=== PATIENT | male | born 1955 | race Caucasian/White ===

== ENCOUNTER 2019-03-14 12:54 | Emergency (ER) | payer OTHER ==
--- OUTSIDE RECORDS SUMMARY | 2019-03-14 13:30 | XMS REPORT | Continuity of Care Document ---
:1955 External Reference #:[id number] Author Name Queta Thompson MD (transmitted by agent of provider Rebecca Fernandez) Address [address] [facility], [place] [address] Care Team Providers Name Role Phone Queta Thompson M.D. 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 Provider Date Essential hypertension Essie Marker, RPA-C Onset: 11/29/2017 Note: Stable on losartan Hyperlipidemia Essie Marker, RPA-C Onset: 11/29/2017 Migraine Essie Marker, RPA-C Onset: 11/29/2017 Social History Type Date Description Comments Sex Unknown ETOH Use Currently consumes 2 drinks/wk alcohol Tobacco Use Start: Unknown Patient has never smoked Recreational Drug Use Current Drug User Marijuana 2x/wk Smoking Status Reviewed: 01/15/19 Patient has never smoked Exercise Type/Frequency Exercises regularly walking, biking Allergies, Adverse Reactions, Alerts Description No Known Drug Allergies Medications Active Medications SIG Qnty Indications Ordering Date Provider Chlorthalidone 1 by mouth once a 30tabs I10 Queta Thompson MD 01/15/2019 25mg day Tablets Tadalafil one by mouth one 14tabs Queta Thompson MD 09/21/2018 20mg Tablets hour before intercourse Sildenafil Citrate take 1-2 tablets 30tabs Queta Thompson MD 04/06/2018 50mg 0.5-4 hours before Tablets activity as needed. Losartan Potassium take one tablet by 90tadavid Thompson MD 100mg mouth daily Tablets Simvastatin take one tablet by 90tadavid Thompson MD 20mg Tablets mouth at night. Multi Vitamin 1 by mouth every Unknown Tablets day Co Q10 1 by mouth every Unknown 200mg Capsules day Immunizations CPT Code Status Date Vaccine Reaction Lot # [id number] Given 01/15/2019 Influ Virus Vaccine, pt. tolerated well. dg [id number] Quadrivalent, Split Virus, [place] [address] Given 07/02/2018 Tdap - No immediate reaction [id number] Tetanus/Diptheria/Acellular Pertussis [id number] Given 11/29/2017 Influenza Virus Vaccine, [id number] Quadrivalent, Split, Preservative Free [id number] Ordered 08/01/2016 Zoster (Zostavax) Vital Signs Date Vital Result Comment 01/15/2019 10:47am Height 68 inches 5'8" Weight 149.00 lb Heart Rate 65 /min BP Systolic Sitting 160 mmHg BP Diastolic Sitting 96 mmHg Body Temperature 97.3 F O2 % BldC Oximetry 99 % BMI (Body Mass Index) 22.7 kg/m2 11/12/2018 3:52pm Height 68 inches 5'8" Weight 152.50 lb Heart Rate 61 /min BP Systolic Sitting 162 mmHg Rue reg cuff manual BP Diastolic Sitting 98 mmHg Rue reg cuff manual O2 % BldC Oximetry 96 % BMI (Body Mass Index) 23.2 kg/m2 Results Description No Information Available Procedures Date Code Description Status 08/19/2015 83350989 Colonoscopy Completed Medical Devices Description No Information Available Encounters Type Date Location Provider Dx Diagnosis Office Visit 01/15/2019 [facility] Queta Thompson MD I10 Essential ( primary[facility] for [facility] Office Visit 11/12/2018 3:20p [facility] Queta Thompson MD Z00.00 [facility]/o abnormal findings I10 Essential (primary) hypertension Assessments Date Code Description Provider 01/15/2019 I10 Essential (primary) hypertension Queta Thompson MD 01/15/2019 Z23 Encounter for immunization Queta Thompson MD 11/12/2018 Z00.00 Encounter for general adult medical examination Queta Thompson MD without abnormal findings 11/12/2018 I10 Essential (primary) hypertension Queta Thompson MD Plan of Treatment Future Appointment(s):04/17/2019 10:20 am - Queta Thompson MD at [facility] Medicine - [facility]01/29/2019 10:30 am - [facility] Queta Thompson MDI10 Essential (primary) hypertensionNew Medication:Chlorthalidone 25 mg - 1 by mouth once a dayComments:Start chlorthalidone daily, in the morning, as well as regular aerobic exercise.Return for nurse visit in 2 weeks, then MD follow up in 3 Sonja encourage you to check your blood pressure on occasion. If it seems to be greater than 140/90 on a regular basis, please touch base with the office.Follow up:2 wk nurse visit 3 mo HTN follow upZ23 Encounter for immunizationImmunizations/Injections:Influenza Virus Vaccine, Quadrivalent ( [id number]), Derived From Cell Functional Status Description No Information Available Mental Status Description No Information Available Referrals Description No Information Available
--- NOTE | 2019-03-14 14:09 | ED ---
Neurological HPI - HPI Summary HPI Summary: This pt is a 64 y/[facility]/o tingling to left side of face and left fingertips for the past 2.5 weeks. Pt reports his left facial tingling began first and the he had tingling on left fingertips. Pt notes he has been feeling fatigued and a "nervousness" feeling. Pt states he has had constant tingling. He reports he has been exercising and doing everything normally. However he states he does not feel normal and he feels different. At had EKG w [facility], told to come to ED. PMHx: HTN, high cholesterol. Pt is vegan. FHx: heart disease. - History of Current Complaint Chief Complaint: EDGeneral Stated Complaint: ABNORMAL EKG PER PT Time Seen by Provider: 03/14/19 13:43 Hx Obtained From: Patient Onset/Duration: Started weeks ago, Still Present Timing: Constant Current Severity: Moderate Neurological Deficit Location: Facial - left sided, LUE Pain Intensity: 0 - denies any pain Pain Scale Used: 0-10 Numeric Character: Numbness/Tingling - Tingling Aggravating: Nothing Alleviating: Nothing Associated Signs and Symptoms: Negative: Nausea/Vomiting, Fever, Chest Pain, Shortness of Breath - Allergy/Home Medications Allergies/Adverse Reactions: Allergies Allergy/AdvReac Type Severity Reaction Status Date / Time No Known Allergies Allergy Verified 03/14/19 13:04 PMH/Surg Hx/FS Hx/Imm Hx Endocrine/Hematology History: Denies: Hx Diabetes Cardiovascular History: Reports: Hx Hypercholesterolemia, Hx Hypertension Neurological History: Reports: Hx Migraine Infectious Disease History: No Infectious Disease History: Denies: Traveled Outside the [place] in Last 30 Days - Family History Known Family History: Positive: Cardiac Disease - Father with fatal UT at age 65 - Social History Alcohol Use: Occasionally Substance Use Type: Reports: None Smoking Status (MU): Never Smoked Tobacco Review of Systems Positive: Fatigue. Negative: Fever Cardiovascular: Negative Respiratory: Negative Gastrointestinal: Negative Positive: Paresthesia - in left side of face and left fingertips All Other Systems Reviewed And Are Negative: Yes Physical Exam - Summary Physical Exam Summary: Constitutional: Well-developed, Well-nourished, Alert. (-) Distressed Skin: Warm, Dry HENT: Normocephalic; Atraumatic Eyes: Conjunctiva normal Neck: Musculoskeletal ROM normal neck. (-) JVD, (-) Stridor Cardio: Rhythm regular, rate normal, Heart sounds normal; Intact distal pulses; Radial pulses are 2+ and symmetric. (-) Murmur Pulmonary/Chest wall: Effort normal. (-) Respiratory distress, (-) Wheezes, (-) Rales Abd: Soft, (-) tenderness, (-) Distension, (-) Guarding, (-) Rebound Musculoskeletal: (-) Edema Lymph: (-) Cervical adenopathy Neuro: Alert, Oriented x3. Cn 2-12 grossly intact aside fro, paresthesia to left face. Strength 5/5 UE/LE, ambulates w steady gait SILT aside from paresthesia to left fingers. Psych: Mood and affect Normal Triage Information Reviewed: Yes Vital Signs On Initial Exam: Initial Vitals Temp Pulse Resp BP Pulse Ox 97.8 F 65 16 189/78 98 03/14/19 13:00 03/14/19 13:00 03/14/19 13:00 03/14/19 13:00 03/14/19 13:00 Vital Signs Reviewed: Yes Procedures - Sedation Patient Received Moderate/Deep Sedation with Procedure: No Diagnostics - Vital Signs Vital Signs Temp Pulse Resp BP Pulse Ox 03/14/19 13:00 97.8 F 65 16 189/78 98 - Laboratory Result Diagrams: 03/14/19 13:52 03/14/19 13:52 Lab Statement: Any lab studies that have been ordered have been reviewed, and results considered in the medical decision making process. - Radiology MRI Screening Orbit XR Radiology Interpretation Completed By: Radiologist Summary of Radiographic Findings: IMPRESSION: No evidence for metallic foreign body. Dr. Boone has reviewed this report. - EKG 12:57 Cardiac Rate: NL - at 67 bpm EKG Rhythm: Sinus Rhythm EKG Comparison: Other - No prior to compare Summary of EKG Findings: EKG at 1257 shows sinus rhythm at a rate of 57 bpm. Left anterior fascicular block. No prior to compare. - Additional Comments Diagnostic Additional Comments: Brain MRI, as read by radiologist IMPRESSION: #. No acute intracranial process evident. #. Mild involutional change and small burden of cerebral white matter signal changes most likely representing chronic small vessel ischemic disease however the differential would include sequela of previous inflammatory foci as well as demyelinating disease and nonspecific white change in setting of migraine headaches. Dr. Boone has reviewed this report. NIH Scale - NIH Scale Level of Consciousness: Alert/Keenly Responsive Ask Patient the Month and His/Her Age: Both Correct Ask Pt to Open/Close Eyes and Management Instructor/Release Non-Paretic Hand: Both Correctly Best Gaze (Only Horizontal Eye Movement): Normal Visual Field Testing: No Visual Loss Facial Paresis-Pt to Smile & Close Eyes or Grimace Symmetry: Normal/Symmetrical Motor Function - Right Arm: No Drift-Holds 10 Seconds Motor Function - Left Arm: No Drift-Holds 10 Seconds Motor Function - Right Leg: No Drift-Holds 10 Seconds Motor Function - Left Leg: No Drift-Holds 10 Seconds Limb Ataxia-Must be out of Proportion to Weakness Present: Absent Sensory (Use Pinprick to Test Arms/Legs/Trunk/Face): Normal Best Language (Describe Picture, Name Items): No Aphasia Dysarthria (Read Several Words): Normal Extinction and Inattention: No Abnormality Total Score: 0 Re-Evaluation - Re-Evaluation First Eval Re-Evaluation Time: 14:22 Comment: Dr. Joshua, neurologist, recommends MRI. Second Eval Re-Evaluation Time: 14:05 Comment: MRI neg for acute stroke, small white matter dx. neuro follow up. trop negative Course/Dx - Course Course Of Treatment: 64-year-old male with a history of hypertension and high cholesterol presents with left facial and hand tingling as well as fatigue. Physical exam unremarkable except for subjective paresthesias. NH stroke scale of 0. Neurology evaluated at bedside agree with MRI if normal can be discharged. We'll also check labs including CBC CMP TSH troponin for reported palpitations at home. EKG here with a left anterior fascicular block, no prior. - Diagnoses Provider Diagnoses: Paresthesia - Physician Notifications Discussed Care Of Patient With: Fabian Joshua Time Discussed With Above Provider: 14:09 Instructed by Provider To: Other - Discussed with Dr. Joshua, neurologist, who will come see the patient. Discharge ED - Sign-Out/Discharge Documenting (check all that apply): Patient Departure - Discharge home - Discharge Plan Condition: Stable Disposition: HOME Patient Education Materials: Paresthesia (ED) Referrals: Osmani Mckeon MD [Primary Care Provider] - Fabian Joshua MD [Medical Doctor] - Additional Instructions: You were seen in the emergency department for paresthesia. Your MRI brain did not show any acute stroke. Please follow up with neurology. Please follow up with your primary care doctor in next 2-3 days and return to emergency department for worsening or concerning symptoms. It was a pleasure taking care of you today. - Billing Disposition and Condition Condition: STABLE Disposition: Home - Attestation Statements Document Initiated by Beulah: Yes Documenting Scribe: Karmen Navarro Provider For Whom Beulah is Documenting (Include Credential): Rosanne Boone MD Scribe Attestation: IKarmen, scribed for Rosanne Boone MD on 03/14/19 at 1608. Scribe Documentation Reviewed: Yes Provider Attestation: The documentation as recorded by the Karmen momin accurately reflects the service I personally performed and the decisions made by , Rosanne Boone MD Status of Scribe Document: Viewed
[2019-03-14 14:28] LABS: ABS Eosinophils 0.2 10^3/ul (0-0.6); ABS Lymphocytes 1.2 10^3/ul (1.0-4.8); ABS Monocytes 0.5 10^3/ul (0-0.8); Eosinophil % 3.5 %; Hematocrit 44 % (42-52); Hemoglobin 15.5 g/dL (14.0-18.0); Lymphocyte % 24.6 %; Mean Corpuscular HGB Conc 35 g/dL (31-36); Mean Corpuscular Hemoglobin 34 pg (27-31); Mean Corpuscular Volume 95 fL (80-94); Mean Platelet Volume 8.2 fL (7.4-10.4); Nucleated Red Blood Cells % 0.1; Platelet Count 245 10^3/uL (150-450); Red Blood Count 4.64 10^6 /uL (4.18-5.48); Red Cell Distribution Width 14 % (10-15); White Blood Count 4.9 10^3/uL (3.5-10.8)
[2019-03-14 14:38] LABS: Magnesium 2.2 mg/dL (1.9-2.7)
[2019-03-14 14:45] LABS: Albumin 4.4 g/dL (3.2-5.2); Albumin/Globulin Ratio 1.6 (1-3); BUN/Creatinine Ratio 15.3 (8-20); Calcium 9.3 mg/dL (8.6-10.3); EGFR Non-African American 66.9 (>60); Globulin 2.7 g/dL (2-4); Total Bilirubin 0.6 mg/dL (0.2-1.0); Total Protein 7.1 g/dL (6.4-8.9)
[2019-03-14 14:55] LABS: TSH (Thyroid Stimulating Horm) 1.21 mcIU/mL (0.34-5.60)
[2019-03-14 16:22] VITALS: BP 167/104
--- NOTE | 2019-03-14 20:11 | CONS ---
NEUROLOGY CONSULTATION NOTE: DATE OF CONSULT: 03/14/19 CONSULTING PHYSICIAN: Dr. Boone. REASON FOR CONSULT: Paresthesias for 2-1/2 weeks. CHIEF COMPLAINT: Tingling of the left face and digits on the left hand. HISTORY OF PRESENT ILLNESS: Mr. Kelvin Sanchez is a 64-year-old vegan who presented with a 2-1/2-week history of gradual tingling on the left side of the face, perioral region, and left fingers. The sym ptoms' onset is not clear, but again the symptoms started approximately 2-1/2 weeks ago. There were no triggering factors. He denied any neck pain. 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 The symptom started shortly after. The tingling is cons tant and nonradiating. He denied any associated symptoms of headaches, slurred speech, word finding difficulty, or weakness. He denied numbness. He does take vitamin B12 supplements given that he is a vegan and has increased his dose from 500 to 1000 mg daily 2 weeks ago. He does have a history of migraine headaches and had his first migraine with aphasia 30 years ago that resolved after a few day s. He denied any history of stroke. NIH stoke scale is 0. PAST MEDICAL HISTORY: 1. Hypertension. 2. Dyslipidemia. 3. Migraine headache. PAST SURGICAL HISTORY: Hernia repair. MEDICATIONS: No medication is listed. FAMILY HISTORY: The patient's brother had a heart attack, father had a heart attack, maternal grandf ather had a stroke. SOCIAL HISTORY: He denied any tobacco use. He used to smoke marijuana, but stopped a few weeks ago. He drinks wine at dinner 1 or 2 times a week. He is a retired wagner. He was taking aspirin re gularly, but stopped approximately 1 month ago due to the concern for GI bleed. REVIEW OF SYSTEMS: A 14-point review of systems was obtained and otherwise negative except for what was mentioned in the HPI. PHYSICAL EXAM: Vitals: Temperature of 97.8, pulse of 65, respiratory rate of 16, oxygen saturation of 98%, blood pressure of 189/78. General: Well-nourished, well- developed young-appearing man, in no acute distress. He appears younger than his stated age. Head: Atraumatic, normocephalic without any obvious abnormality. Eyes: Conjunctivae/corneas are clear. Neck is supple and symmetrical with no carotid bruit. Chest: Clear to auscultation bilaterally with no wheezing or rhonchi. Cardiovas cular: Regular rate and rhythm with normal S1, S2. No pitting edema. Extremities: Normal range of motion with no cyanosis or edema. Skin: No skin lesions or laceration. Psych: Affect is broad, n ormal mood, easy to establish rapport. Neurological Examination: Mental Status: Awake, alert, orie nted to person, place, time, and general circumstances. Speech and language were assessed and the isak earl had normal fluency and comprehension. Cranial Nerves: Pupils are equal, round, and reactive t o light. Extraocular muscles are intact. There is normal sensation in the face bilaterally. Tongue is symmetric and midline with no atrophy or fasciculation. There is no facial asymmetry. He is abl e to hear throughout the history process. Motor Examination: 5/5 strength in the upper and lower extremities bilaterally and symmetrically. T here is no evidence of spasticity. Normal tone throughout. Sensation is intact throughout. He has h yperesthesia more than numbness on the left side of the face. Vibration is 7 seconds on the right an d 8 seconds on the left great toes. Coordination: Normal [id number] and [id number] testing bi laterally. Reflexes: Trace throughout and 0 at the ankles bilaterally. Gait: Normal stance, no mei bob. DIAGNOSTIC STUDIES/LAB DATA: Labs, imaging, and other diagnostic testing: WBC of 4.9, hemoglobin of 15, hematocrit of 44, platelet count of 245. Sodium of 139, potassium is 4, chloride of 107, Carbon dioxide is 27. Anion gap is 5. BUN of 17, creatinine is 1.11. Glucose of 102, magnesium is 2.2, v itamin B12 and TSH are pending. ASSESSMENT AND RECOMMENDATIONS: The patient is a 64-year-old man who is a vegan who takes vitamin B1 2 supplements, who presented with a subacute gradual onset of hyperesthesia involving the left face, perioral region, and left finger tips. The patient's NIH stroke scale is 0. He has no sensory abnor mality. The patient's neurological examination was notable for reduced vibration at the toes bilater ally suggesting some possible underlying neuropathy. He denied any procedures in the feet. The patient's systolic blood pressure is significantly elevated upon admission. The differential diag nosis here includes a small lacunar stroke in the aletha or thalamus on the contralateral side, which w ould be the right side. Other differential diagnosis includes vitamin B12 deficiency or a complex pa inless migraines. The patient has had symptoms for 2-1/2 weeks. No need for extensive stroke workup at this time given his NIH stroke scale of 0. However, given that the patient's symptoms started af ter he was doing construction work raising plywood into the ceiling, he may have had an asymptomatic vertebral dissection, which is unusual and atypical to be painless, but causing small pontine stroke. Therefore, an MRI of the brain without contrast is recommended. If this can be done in the ED, the patient will not need to be admitted. If the MRI is negative for stroke, the patient can be dischar ged home with close follow up with Neurology. I have sent a vitamin B12 level, Lyme testing, SUDHEER, an d TSH to rule out any other metabolic causes or paresthesias. Given the patient's risk factors, hype rtension, and family history of coronary artery disease, I recommend continuing the aspirin 81 mg for primary stroke prevention. We will follow up with the results and consider discharging the patient depending on the findings. I discussed this recommendation with Dr. Boone. I also discussed thi s recommendation with Dr. Garcia in case there is evidence of stroke and the patient will need furthe r workup as an inpatient. We will follow up with the patient once the results are available. [id number]/[facility] #: [id number]
== END 2019-03-14 16:23 | disposition home or self-care (01) ==
LOC: ED 12:54
DX: R20.2 Paresthesia of skin (principal); I10 Essential (primary) hypertension; E78.00 Pure hypercholesterolemia, unspecified
CPT/HCPCS: 36415; 70030; 70551; 80053; 82607; 83735; 84443; 84484; 85025; 86618; 93005; 99283